=== PATIENT | male | born 1945 | race Caucasian/White ===

== ENCOUNTER 2018-02-23 15:00 | Outpatient (CLI) | payer MEDICARE, OTHER ==
[2018-02-23 18:30] LABS: PSA FREE 0.3 ng/mL (0.16-2.81)
[2018-02-23 18:31] LABS: PSA TOTAL 1.81 ng/mL (0.000-2.000)
== END 2018-02-23 15:01 | disposition home or self-care (01) ==
LOC: LAB.F 15:00
PROVIDERS: ATTEND Urology
DX: N40.1 Benign prostatic hyperplasia with lower urinary tract symptoms (principal); R35.0 Frequency of micturition
CPT/HCPCS: 36415; 84154

== ENCOUNTER 2018-10-26 15:26 | Outpatient (CLI) | payer MEDICARE, OTHER | END 2018-10-26 15:27 | disposition home or self-care (01) | LOC: LAB.F 15:26 | PROVIDERS: ATTEND Ophthalmology | DX: H33.8 Other retinal detachments (principal) ==

== ENCOUNTER 2018-10-31 11:40 | Outpatient (CLI) | payer MEDICARE, OTHER ==
[2018-10-31 17:58] LABS: PT - PROTHROMBIN TIME 11.3 secs (9.9-12.6)
[2018-10-31 17:59] LABS: BASOPHILS # (AUTO) 0.1 10^3/uL (0.0-0.1); BASOPHILS % (AUTO) 0.7 %; EOSINOPHILS # (AUTO) 0.3 10^3/uL (0.0-0.7); EOSINOPHILS % (AUTO) 5.1 %; HGB - HEMOGLOBIN 14.6 g/dL (14.0-18.0); LYMPHOCYTES # (AUTO) 1.2 10^3/uL (1.5-3.5); LYMPHOCYTES % (AUTO) 17.1 %; MEAN CORPUSCULAR HEMOGLOBIN 31.9 pg (27.0-31.0); MEAN CORPUSCULAR HGB CONC 33.9 g/dL (32.0-36.0); MEAN CORPUSCULAR VOLUME 94.1 fL (80.0-94.0); MEAN PLATELET VOLUME 7.7 fL (7.4-11.4); MONOCYTES # (AUTO) 0.4 10^3/uL (0.0-1.0); MONOCYTES % (AUTO) 6.3 %; NEUTROPHILS # (AUTO) 4.8 10^3/uL (1.5-6.6); NEUTROPHILS % (AUTO) 70.8 %; PLT - PLATELET COUNT 248 10^3/uL (130-450); RED BLOOD COUNT 4.57 10^6/uL (4.70-6.10); RED CELL DISTRIBUTION WIDTH 14.2 % (12.0-15.0); WHITE BLOOD COUNT 6.8 x10^3/uL (4.8-10.8)
== END 2018-10-31 11:41 | disposition home or self-care (01) ==
LOC: LAB.F 11:40
PROVIDERS: ATTEND Ophthalmology
DX: H33.8 Other retinal detachments (principal)
CPT/HCPCS: 36415; 85025; 85610

== ENCOUNTER 2018-11-29 15:02 | Outpatient (CLI) | payer MEDICARE, OTHER ==
--- NOTE | 2018-11-30 10:36 | MRI Report ---
Reason: TRANSIENT DIPLOPIA Procedure Date: 11/29/2018 Accession Number: [id number] / [id number] Procedure: MRI - Angio Brain W/O (MRA) CPT Code: FULL RESULT: EXAM MRA BRAIN EXAM DATE: 11/29/2018 03:51 PM. CLINICAL HISTORY: Sudden onset of transient diplopia. COMPARISON: None. TECHNIQUE: Multiplanar, multisequence MRA sequences of the brain were performed. Other: None. Post-processing: Multiplanar 3D MIP reconstructions. IV Contrast: None. 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 origin of the right ELECTRONICS SCALE TESTER. Prominent left posterior communicating artery. Small left ELECTRONICS SCALE TESTER P1 segment. Prominent left SINCERE A1 segment with reciprocally hypoplastic right SINCERE A1. No evidence for cerebral aneurysm or large vessel occlusion or focal flow-limiting stenosis. IMPRESSION: Unremarkable screening [place] MRA. No evidence for aneurysm. Incidental anatomic variants are present as noted. RADIA
== END 2018-11-29 15:03 | disposition home or self-care (01) ==
LOC: DI 15:02
PROVIDERS: ATTEND Psychiatry & Neurology Neurology
DX: H53.2 Diplopia (principal)
CPT/HCPCS: 70544

== ENCOUNTER 2020-02-12 15:04 | Emergency (ER) | payer MEDICARE, OTHER ==
[2020-02-12 15:49] LABS: BILIRUBIN,URINE NEGATIVE (NEGATIVE); GLUCOSE, URINE (UA) NEGATIVE (NEGATIVE); KETONES,URINE (UA) NEGATIVE (NEGATIVE); LEUKOCYTE ESTERASE, URINE NEGATIVE (NEGATIVE); NITRITE,URINE NEGATIVE (NEGATIVE); OCCULT BLOOD,URINE NEGATIVE (NEGATIVE); PH,URINE 6.5 PH (5.0-7.5); PROTEIN,URINE NEGATIVE (NEGATIVE); UROBILINOGEN,URINE 0.2 (NORMAL) E.U./dL (NORMAL)
[2020-02-12 15:50] LABS: CLARITY,URINE CLEAR (CLEAR)
--- NOTE | 2020-02-12 15:57 | ED Physician Documentation ---
PD HPI BACK PAIN - Stated complaint Stated Complaint: LOWER BACK PAIN - Chief complaint Chief Complaint: Back Pain - History obtained from History obtained from: Patient - History of Present Illness Location: Lower, Right Quality: Pain, Aching Associated symptoms: No: Fever, Weakness, Numbness, Incontinent of urine, Unable to urinate, Hematuria, Incontinent of stool Improves with: Rest, Meds Worsened by: No: Movement, Lifting, Twisting, Palpation Contributing factors: No: Lifting, Twisting, Trauma, Cancer, IVDA - Additional information Additional information: 74 yo M presents w/ right lower back pain for about a week. Pain localized to about 2 inches around his belt line. Denies acute onset, fall, trauma, lifting or other precipitating factors. Has been taking ibuprofen 400mg several times a day w/ some relief but does not resolve problem. Pt concerned because he occasionally feels as though his right leg will give way. He does not have lower ext paraesthesias, weakness, foot drop, or saddle anesthesia but periodically when walking the right leg feels it may give out. He has no dysuria, hematuria, urg/frequency, or other changes in bowel/bladder. No fever/chills, no weight loss. Pt states he remains very active, does various stretching, weight lifting several times a week though doesn't think he did anything to strain back, and participates in bike spin classes several times a week. He has no difficulty with these activities. Pt states he wanted to r/o a kidney stone or UTI which is why he presented to the ED. He does suspect this is arthritis however. Review of Systems Constitutional: reports: Reviewed and negative Cardiac: reports: Reviewed and negative Respiratory: reports: Reviewed and negative GI: reports: Reviewed and negative : reports: Reviewed and negative Skin: reports: Reviewed and negative Musculoskeletal: reports: Back pain Psychiatric: reports: Reviewed and negative PD PAST MEDICAL HISTORY - Past Medical History Cardiovascular: High cholesterol, Pulmonary embolism Respiratory: None Neuro: None Endocrine/Autoimmune: None GI: None : Benign prostate hypertrophy, Kidney stones HEENT: None Psych: None Musculoskeletal: Osteoarthritis Derm: None - Past Surgical History Past Surgical History: Yes Ortho: Hip replacement, Knee replacement, Shoulder arthroplasty - Present Medications Home Medications: Ambulatory Orders Medication Instructions Recorded Confirmed Acetaminophen [Tylenol] 650 mg PO DAILY PRN 02/15/14 03/03/14 Diclofenac Sodium [Voltaren] 1 applic TOP DAILY PRN 02/15/14 03/03/14 - Allergies Allergies/Adverse Reactions: Allergies Allergy/AdvReac Type Severity Reaction Status Date / Time No Known Drug Allergies Allergy Verified 02/12/20 15:18 - Social History Does the pt smoke?: No Smoking Status: Never smoker Does the pt drink ETOH?: Yes Does the pt have substance abuse?: No - Immunizations Immunizations are current?: Yes - POLST Patient has POLST: No PD ED PE NORMAL - Vitals Vital signs reviewed: Yes - General General: Alert and oriented X 3, No acute distress, Well developed/nourished - Cardiac Cardiac: RRR, No murmur, No gallop, No rub - Respiratory Respiratory: No respiratory distress, Clear bilaterally - Abdomen Abdomen: Normal bowel sounds, Non tender, Non distended - Back Back: No CVA TTP, Other (unable to reproduce backpain w/ palpation ) - Derm Derm: Normal color, Warm and dry, No rash - Extremities Extremities: No deformity, No tenderness to palpate, Normal ROM s pain, No edema, No calf tenderness / cord, Other (normal gait, 5/5 extremity strength. ) - Neuro Neuro: Alert and oriented X 3 Eye Opening: Spontaneous Motor: Obeys Commands Verbal: Oriented GCS Score: 15 Results - Vitals Vitals: Vital Signs - 24 hr 02/12/20 02/12/20 15:18 16:51 Temperature 36.5 C 36.8 C Heart Rate 64 58 L Respiratory 16 19 Rate Blood Pressure 100/80 120/59 L O2 Saturation 97 99 Oxygen O2 Source Room air - Labs Labs: Laboratory Tests 02/12/20 15:40 Urine Color YELLOW Urine Clarity CLEAR Urine pH 6.5 Ur Specific [place] 1.025 Urine Protein NEGATIVE Urine Glucose (UA) NEGATIVE Urine Ketones NEGATIVE Urine Occult Blood NEGATIVE Urine Nitrite NEGATIVE Urine Bilirubin NEGATIVE Urine Urobilinogen 0.2 (NORMAL) Ur Leukocyte Esterase NEGATIVE Ur Microscopic Review NOT INDICATED Urine Culture Comments NOT INDICATED PD MEDICAL DECISION MAKING - ED course Complexity details: reviewed results, re-evaluated patient, considered differential, d/w patient ED course: 74 yo M who presents with right lower back pain for about a week. Not currently having the pain however. Physical exam reassuring, no signs of cauda equina, low suspicion for infectious etiology, no weight loss, IVDU or other red flags. UA negative for infection and there is no blood to suggest a stone, and pattern of pain not c/w stone. Xray reveals degenerative changes that may be contributing to patients sx. Pt advised to continue activity as tolerated but recommended red ucing lifting and anything that may induce low back strain for 2-3 weeks. Continue motrin, may try tylenol, warm compress. IF sx persist, follow up with PCP and consider PT or referral to customer engagement specialist. Return precautions reviewed w/ pt. Departure - Departure Disposition: 01 Home, Self Care Clinical Impression: Back pain Qualifiers: Back pain location: low back pain Chronicity: acute Back pain laterality: right Sciatica presence: without sciatica Qualified Code(s): M54.5 - Low back pain Condition: Good Instructions: ED Low Back Pain Injury Comments: You presented with lower back pain and wanted to rule out a urinary infection or possible kidney stone. Your urine was negative for infection and there was no blood or other signs suggestive of a stone. We did obtain an xray of your lumbar spine which shows many degenerative changes that are likely contributing to your pain. I recommend that you continue supportive measures (stretching, avoid heaving lifting/twisting, you may try heating pad, ibuprofen, and tylenol). If you have no improvement, please follow up with your primary doctor in 1-2 weeks. If you have worsening symptoms such as numbness in the groin, lower leg paraesthesias or foot drop, or urinary symptoms, fever, weight loss or other new concerns, please return to to the ER. Discharge Date/Time: 02/12/20 17:04
--- NOTE | 2020-02-12 16:30 | XRAY Report ---
PROCEDURE: Lumbar Spine 2 View INDICATIONS: pain TECHNIQUE: 2 views of the lumbar spine were acquired. COMPARISON: None. FINDINGS: Bones: 5 [id number] vertebrae are present. There is a minimal left curvature of the lumbar spi ne. There is minimal just the cyst at L1-L2, L2-L3, L3-L4, and L4-L5. Multilevel disc space narrowing is demonstrated including severe narrowing at L3-L4 with apparent partial fusion. Severe narrowing a lso demonstrated at L1-L2 as well as moderate to severe narrowing at L4-L5. There is moderate facet a rthropathy in the lower lumbar spine. No vertebral body compression fractures. Soft tissues: Overlying bowel gas pattern is normal. No suspicious soft tissue calcifications. IMPRESSION: 1. Multilevel degenerative disc disease throughout the lumbar spine including severe narrowing at L3- L4 with apparent partial fusion which is not well evaluated on the current study. Further evaluation may be obtained with MRI or CT if clinically indicated. 2. Moderate facet arthropathy in the lower lumbar spine. 3. Multilevel minimal atelectasis throughout the lumbar spine as well as a minimal leftward curvature . Reviewed by: Fabricio Zeng MD on 02/12/2020 4:28 PM PDT Approved by: Fabricio Zeng MD on 02/12/2020 4:28 PM PDT Station ID: [id number]
[2020-02-12 16:52] VITALS: BP 120/59
== END 2020-02-12 17:04 | disposition home or self-care (01) ==
LOC: ED 15:04
DX: M51.36 Other intervertebral disc degeneration, lumbar region (principal); M48.061 Spinal stenosis, lumbar region without neurogenic claudication
CPT/HCPCS: 72100; 81001; 81003; 87086; 99284

== ENCOUNTER 2020-04-01 10:00 | Outpatient (CLI) | payer MEDICARE, OTHER ==
--- NOTE | 2020-04-01 11:56 | MRI Report ---
PROCEDURE: Lumbar Spine W/O INDICATIONS: LUMBAR DISC DISEASE WITH RADICULOPATHY TECHNIQUE: Noncontrast sagittal T1 spin echo and T2 fast echo, sagittal STIR, axial T1 and T2 fast spin echo thr ough the lumbar spine. In cases with scoliosis, additional coronal T2 fast spin echo may be performe d. COMPARISON: Correlation is made with prior lumbar plain films, 02/12/2020. FINDINGS: Image quality: Motion artifact is noted. Alignment and Curvature: There is minimal retrolisthesis at L2-L3, with mild retrolisthesis at L3-L4 and at L4-L5. Mild levoconvex scoliotic curvature is seen. Bone Marrow: Marrow is of normal overall signal. No acute vertebral body compression fractures. Spinal Cord: Conus medullaris terminates at the T12 level. Visualized cord demonstrates normal sign al and size. Paraspinous Soft Tissues: No paravertebral masses. T12-L1: The disc height is well-preserved. There is loss of disc signal seen. Mild disc bulge is see n, which is eccentric to the left. There is a central/left disc extrusion, as on series 701 image 35 and on series 301 image 6. Moderate facet hypertrophy is seen. There is mild right-sided and modera te left-sided neuroforaminal narrowing seen. Mild to moderate central canal narrowing is seen. L1-L2: Moderate to severe loss of disc height and disc signal can be seen. Bridging anterior osteo phytes are seen. Moderate disc bulge is seen, which is eccentric to the right. Moderate facet hypert rophy is seen. There is moderate left-sided and moderate to severe right-sided neuroforaminal narrow ing seen. There is a degree of compression seen upon the exiting right L1 nerve root. Moderate centr al canal narrowing is seen. L2-L3: Moderate to severe loss of disc height and disc signal can be seen. Moderate disc bulge is seen, which is eccentric to the left side. Mild facet hypertrophy is seen. There is mild to moderat e left-sided and moderate right-sided neuroforaminal narrowing seen. Mild to moderate central canal n arrowing is seen. L3-L4: There is severe loss of disc height seen. A degree of bony bridging is suspected. Bridging a nterior osteophytes can be seen. Mild to moderate facet hypertrophy is seen at this level. There is m oderate to severe bilateral neuroforaminal narrowing seen. Compression is seen upon the exiting nerve roots. At least moderate central canal narrowing is seen. L4-L5: Moderate to severe loss of disc height and disc signal can be seen. Bridging anterior osteop hytes are seen. Posteriorly directed endplate osteophytes are seen. Moderate disc bulge is seen at this level. Moderate to prominent facet hypertrophy is seen. Moderate to severe bilateral neurofora roderick narrowing can be seen. Compression is seen upon the exiting nerve roots. Mild central canal n arrowing is seen. L5-S1: The disc height is well-preserved. There is loss of disc signal seen. Mild to moderate disc bulge is seen. Mild to moderate facet hypertrophy is seen. Fluid is seen within the facet joints them selves. Moderate to severe bilateral neuroforaminal narrowing can be seen, right worse than left. Co mpression is seen upon the exiting nerve roots. Mild to moderate central canal narrowing is seen. IMPRESSION: Multiple levels of lumbar spine degenerative change are seen, which are overall most pro minent at L3-L4. Moderate to severe bilateral neuroforaminal narrowing can be seen at L3-L4, L4-L5, and L5-S1, with as sociated exiting nerve root compression. Reviewed by: Ryan Montano MD on 04/01/2020 10:55 AM [place] Approved by: Ryan Montano MD on 04/01/2020 10:55 AM [facility] Station ID: [id number]
== END 2020-04-01 10:01 | disposition home or self-care (01) ==
LOC: DI 10:00
PROVIDERS: ATTEND Internal Medicine
DX: M51.36 Other intervertebral disc degeneration, lumbar region (principal); M48.061 Spinal stenosis, lumbar region without neurogenic claudication; M47.816 Spondylosis without myelopathy or radiculopathy, lumbar region; M47.817 Spondylosis without myelopathy or radiculopathy, lumbosacral region; M51.37 Other intervertebral disc degeneration, lumbosacral region; M48.07 Spinal stenosis, lumbosacral region; M51.25 Other intervertebral disc displacement, thoracolumbar region; M47.815 Spondylosis without myelopathy or radiculopathy, thoracolumbar region
CPT/HCPCS: 72148

== ENCOUNTER 2022-12-01 15:31 | Outpatient (CLI) | payer MEDICARE, OTHER ==
--- NOTE | 2022-12-01 16:14 | XRAY Report ---
PROCEDURE: Chest 2 View X-Ray INDICATIONS: COVID+ INFECTION, PRODUCTIVE COUGH TECHNIQUE: 2 views of the chest were acquired. COMPARISON: None. FINDINGS: Surgical changes and devices: None. Lungs and pleura: No pleural effusions or pneumothorax. Lungs are clear. Mediastinum: Mediastinal contours appear normal. Heart size is normal. Bones and chest wall: Scattered degenerative changes. IMPRESSION: No acute radiographic abnormality. Reviewed by: Doni Gomez MD on 12/01/2022 4:13 PM PDT Approved by: Doni Gomez MD on 12/01/2022 4:13 PM PDT Station ID: [id number]
== END 2022-12-01 23:59 | disposition home or self-care (01) ==
LOC: DI.S 15:31
PROVIDERS: ATTEND Physician Assistant Medical
DX: U07.1 COVID-19 (principal); J06.9 Acute upper respiratory infection, unspecified

== ENCOUNTER 2023-01-31 16:04 | Emergency (ER) | payer MEDICARE, OTHER ==
[2023-01-31 17:31] LABS: B. PARAPERTUSSIS- RESP PCR PAN NOT DETECTED; B. PERTUSSIS- RESP PCR PANEL NOT DETECTED; C. PNEUMONIAE- RESP PCR PANEL NOT DETECTED; CORONAVIRUS 229E-RESP PCR NOT DETECTED; CORONAVIRUS HKU1-RESP PCR NOT DETECTED; CORONAVIRUS NL63-RESP PCR NOT DETECTED; CORONAVIRUS OC43-RESP PCR NOT DETECTED; HUMAN METAPNEUMOVIRUS NOT DETECTED; INFLUENZA A- RESP PCR PANEL NOT DETECTED; INFLUENZA B - RESP PCR PANEL NOT DETECTED; M. PNEUMONIAE- RESP PCR PANEL NOT DETECTED; PARAINFLUENZA VIRUS 1 NOT DETECTED; PARAINFLUENZA VIRUS 2 NOT DETECTED; PARAINFLUENZA VIRUS 3 NOT DETECTED; PARAINFLUENZA VIRUS 4 NOT DETECTED; RHINOVIRUS/ENTEROVIRUS NOT DETECTED; RSV- RESP PCR PANEL NOT DETECTED; SARS-CoV-2 -RESP PCR PANEL NOT DETECTED
--- NOTE | 2023-01-31 17:59 | ED Physician Documentation ---
PD HPI URI - Stated complaint Stated Complaint: FEVER,SOA,THROAT PX - Chief complaint Chief Complaint: Resp - History obtained from History obtained from: Patient - History of Present Illness Timing - onset: How many days ago (3) Timing duration: Days (3) Timing details: Gradual onset Associated symptoms: No: Chest pain, Dyspnea, NVD Recently seen: Not recently seen - Additional information Additional information: 77-year-old male with fever and cough. He states his eyes have felt dry as well. Negative COVID test at home. No dyspnea. No vomiting or diarrhea. Nothing makes it better or worse. Review of Systems Constitutional: reports: Fever Skin: denies: Rash Neurologic: denies: Seizure PD PAST MEDICAL HISTORY - Past Medical History Cardiovascular: High cholesterol, Pulmonary embolism Respiratory: None Neuro: None Endocrine/Autoimmune: None GI: None : Benign prostate hypertrophy, Kidney stones HEENT: None Psych: None Musculoskeletal: Osteoarthritis Derm: None - Past Surgical History Past Surgical History: Yes Ortho: Hip replacement, Knee replacement, Shoulder arthroplasty - Present Medications Home Medications: Ambulatory Orders Medication Instructions Recorded Confirmed Celecoxib [CeleBREX] 100 mg PO BID 01/31/23 01/31/23 Gabapentin [Neurontin] 100 mg PO 01/31/23 01/31/23 Rosuvastatin Calcium [Crestor] 10 mg PO 01/31/23 01/31/23 traZODone [Desyrel] 50 mg PO 01/31/23 01/31/23 - Allergies Allergies/Adverse Reactions: Allergies Allergy/AdvReac Type Severity Reaction Status Date / Time No Known Drug Allergies Allergy Verified 01/31/23 16:30 - Social History Does the pt smoke?: No Smoking Status: Never smoker Does the pt drink ETOH?: Yes Does the pt have substance abuse?: No - Immunizations Immunizations are current?: Yes - POLST Patient has POLST: No PD ED PE NORMAL - Vitals Vital signs reviewed: Yes - General General: Alert and oriented X 3, No acute distress - HEENT HEENT: PERRL, Ears normal, Moist mucous membranes, Pharynx benign - Neck Neck: Supple, no meningeal sign - Cardiac Cardiac: RRR, Strong equal pulses - Respiratory Respiratory: No respiratory distress, Clear bilaterally - Abdomen Abdomen: Soft, Non tender, Non distended - Derm Derm: Warm and dry - Extremities Extremities: No edema - Neuro Neuro: Alert and oriented X 3 - Psych Psych: Normal mood, Normal affect Results - Vitals Vitals: Vital Signs - 24 hr 01/31/23 01/31/23 16:26 18:01 Temperature 38.0 C H 38.4 C H Heart Rate 96 86 Respiratory 20 16 Rate Blood Pressure 165/69 H 155/72 H O2 Saturation 96 94 Oxygen O2 Source Room air - Labs Labs: Laboratory Tests 01/31/23 16:15 Nasal Adenovirus (PCR) DETECTED A Nasal B. parapertussis DNA (PCR) NOT DETECTED Nasal Coronavir 229E PCR NOT DETECTED Nasal Coronavir HKU1 PCR NOT DETECTED Nasal Coronavir NL63 PCR NOT DETECTED Nasal Coronavir OC43 PCR NOT DETECTED Nasal Enterovir/Rhinovir PCR NOT DETECTED Nasal Influenza B PCR NOT DETECTED Nasal Influenza A PCR NOT DETECTED Nasal Parainfluen 1 PCR NOT DETECTED Nasal Parainfluen 2 PCR NOT DETECTED Nasal Parainfluen 3 PCR NOT DETECTED Nasal Parainfluen 4 PCR NOT DETECTED Nasal RSV (PCR) NOT DETECTED Nasal B.pertussis DNA PCR NOT DETECTED Nasal C.pneumoniae (PCR) NOT DETECTED Charan Human Metapneumo PCR NOT DETECTED Nasal M.pneumoniae (PCR) NOT DETECTED Nasal SARS-CoV-2 (PCR) NOT DETECTED - Rads (name of study) cxr Relevant Findings:: Final report received, See rad report PD Medical Decision Making - ED course Complexity details: reviewed results, re-evaluated patient, considered differential, d/w patient ED course: Patient is well-appearing, nontoxic. He is positive for adenovirus. Chest x- ray does not show any evidence of pneumonia. Negative COVID test. No hypoxia or respiratory distress. We will continue supportive care at home and have him follow-up with his PCP for further care as needed. Patient counseled regarding signs and symptoms for which I believe and urgent re-evaluation would be necessary. Patient with good understanding of and agreement to plan and is comfortable going home at this time This document was made in part using voice recognition software. While efforts are made to proofread this document, sound alike and grammatical errors may occur. Departure - Departure Disposition: 01 Home, Self Care Clinical Impression: Adenovirus infection Condition: Good Instructions: ED Viral Syndrome Follow-Up: your,doctor in 1 week [Other] Comments: You have tested positive for adenovirus today. Your x-ray does not show any evidence of pneumonia. Please follow-up with your doctor for further care. Please return if you worsen. You can use Motrin or Tylenol as needed for pain. Your COVID test is negative. Forms: PCP List Discharge Date/Time: 01/31/23 18:09
--- OUTSIDE RECORDS SUMMARY | 2023-01-31 18:02 | EXTERNAL MEDICAL SUMMARY RPT | Continuity of Care Document ---
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 Name Role Phone Unavailable Unavailable Unavailable Gael Patient Registrar, Mike Unavailable U navailable Gael Patient Registrar, Mike Unavailable U navailable Gael Patient Registrar, Mike Unavailable U navailable Medications date description facility 2022-12-01 00:00 fluticasone propionate [facility] [place] 2022-12-01 00:00 fluticasone propionate All 2022-12-02 00:00 fluticasone propionate [facility] [place] 2022-12-01 00:00 aspirin [facility] [place] 2022-12-01 00:00 aspirin All 2022-12-02 00:00 aspirin [facility] [place] 2022-12-01 00:00 lorazepam [facility] [place] 2022-12-01 00:00 lorazepam All 2022-12-02 00:00 lorazepam [facility] [place] 2022-12-01 00:00 fluticasone propionate [facility] [place] 2022-12-01 00:00 fluticasone propionate All 2022-12-02 00:00 fluticasone propionate [facility] [place] 2022-12-01 00:00 lorazepam [facility] [place] 2022-12-01 00:00 lorazepam All 2022-12-02 00:00 lorazepam [facility] [place] 2022-12-01 00:00 fluticasone propionate [facility] [place] 2022-12-01 00:00 fluticasone propionate All 2022-12-02 00:00 fluticasone propionate [facility] [place] 2022-12-01 00:00 lorazepam [facility] [place] 2022-12-01 00:00 lorazepam All 2022-12-02 00:00 lorazepam [facility] [place] 2022-12-01 00:00 aspirin [facility] [place] 2022-12-01 00:00 aspirin All 2022-12-02 00:00 aspirin [facility] [place] 2022-12-01 00:00 celecoxib [facility] [place] 2022-12-01 00:00 celecoxib All 2022-12-01 00:00 celecoxib [facility] [place] 2022-12-02 00:00 celecoxib [facility] [place] 2022-12-01 00:00 trazodone [facility] [place] 2022-12-01 00:00 trazodone All 2022-12-02 00:00 trazodone [facility] [place] 2022-12-01 00:00 gabapentin [facility] [place] 2022-12-01 00:00 gabapentin All 2022-12-02 00:00 gabapentin [facility] [place] 2022-12-01 00:00 rosuvastatin [facility] [place] 2022-12-01 00:00 rosuvastatin All 2022-12-02 00:00 rosuvastatin [facility] [place] 2022-12-01 00:00 fluticasone propionate [facility] [place] 2022-12-01 00:00 fluticasone propionate All 2022-12-02 00:00 fluticasone propionate [facility] [place] 2022-12-01 00:00 gabapentin [facility] [place] 2022-12-01 00:00 gabapentin All 2022-12-02 00:00 gabapentin [facility] [place] 2022-12-01 00:00 trazodone [facility] [place] 2022-12-01 00:00 trazodone All 2022-12-02 00:00 trazodone [facility] [place] 2022-12-01 00:00 lorazepam [facility] [place] 2022-12-01 00:00 lorazepam All 2022-12-02 00:00 lorazepam [facility] [place] 2022-12-01 00:00 trazodone [facility] [place] 2022-12-01 00:00 trazodone All 2022-12-02 00:00 trazodone [facility] [place] 2022-12-01 00:00 celecoxib [facility] [place] 2022-12-01 00:00 celecoxib All 2022-12-01 00:00 celecoxib [facility] [place] 2022-12-02 00:00 celecoxib [facility] [place] 2022-12-01 00:00 celecoxib [facility] [place] 2022-12-01 00:00 celecoxib All 2022-12-01 00:00 celecoxib [facility] [place] 2022-12-02 00:00 celecoxib [facility] [place] 2022-12-01 00:00 gabapentin [facility] [place] 2022-12-01 00:00 gabapentin All 2022-12-02 00:00 gabapentin [facility] [place] 2022-12-01 00:00 aspirin [facility] [place] 2022-12-01 00:00 aspirin All 2022-12-02 00:00 aspirin [facility] [place] 2022-12-01 00:00 celecoxib [facility] [place] 2022-12-01 00:00 celecoxib All 2022-12-01 00:00 celecoxib [facility] [place] 2022-12-02 00:00 celecoxib [facility] [place] 2022-12-01 00:00 rosuvastatin [facility] [place] 2022-12-01 00:00 rosuvastatin All 2022-12-02 00:00 rosuvastatin [facility] [place] 2022-12-01 00:00 gabapentin [facility] [place] 2022-12-01 00:00 gabapentin All 2022-12-02 00:00 gabapentin [facility] [place] 2022-12-01 00:00 rosuvastatin [facility] [place] 2022-12-01 00:00 rosuvastatin All 2022-12-02 00:00 rosuvastatin [facility] [place] 2022-12-01 00:00 trazodone [facility] [place] 2022-12-01 00:00 trazodone All 2022-12-02 00:00 trazodone [facility] [place] 2022-12-01 00:00 rosuvastatin [facility] [place] 2022-12-01 00:00 rosuvastatin All 2022-12-02 00:00 rosuvastatin [facility] [place] Problems date description facility 2022-12-01 00:00 Infection of upper r espiratory tract caused by SARS-CoV-2 [facility] 2022-12-01 00:00 Infection of upper r espiratory tract caused by SARS-CoV-2 [facility] [place] 2022-12-01 00:00 No current problems or disability - unknown [facility] [place] 2022-12-01 00:00 Repeated prescription All 2022-12-01 00:00 Repeated prescription [facility] [place] 2022-12-01 00:00 Productive cough All 2022-12-01 00:00 Productive cough [facility] [place] 2022-12-01 00:00 Cough All 2022-12-01 00:00 Cough [facility] [place] 2022-12-01 00:00 Other specified cough All 2022-12-01 00:00 Other specified cough [facility] [place] 2022-12-01 00:00 COVID-19 All 2022-12-01 00:00 COVID-19 [facility] [place] 2022-12-01 00:00 Issue of repeat prescriptions A ll 2022-12-01 00:00 Issue of repeat prescriptions [facility] [place] 2022-12-01 00:00 Encounter for issue of repeat prescription All 2022-12-01 00:00 Encounter for issue of repeat prescription [facility] [place] Procedures date description facility 2022-12-01 00:00 Visit Code Hold [facility] 2022-12-01 00:00 Visit Code Hold [facility] [place] Social History date description facility 2022-12-01 00:00 Never smoker All 2022-12-01 00:00 Never smoker [facility] [place] 2022-12-01 00:00 Unknown if ever smoked [facility] [place] Vital Signs date measurement value units 2022-12-01 00:00 BMI 27.77 kg/m2 2022-12-01 00:00 BP_diastolic 71 mmHg 2022-12-01 00:00 BP_systolic 135 mmHg 2022-12-01 00:00 heart_rate 69 /min 2022-12-01 00:00 height_metric 172.72 cm 2022-12-01 00:00 height_standard 68 in 2022-12-01 00:00 respiration_rate 17 /min 2022-12-01 00:00 temperature_metric 36.22 C 2022-12-01 00:00 temperature_standard 97.2 F 2022-12-01 00:00 weight_metric 82.55 kg 2022-12-01 00:00 weight_standard 182 lb 2022-12-01 00:00 BMI 27.77 kg/m2 2022-12-01 00:00 BP_diastolic 71 mmHg 2022-12-01 00:00 BP_systolic 135 mmHg 2022-12-01 00:00 heart_rate 69 /min 2022-12-01 00:00 height_metric 172.72 cm 2022-12-01 00:00 height_standard 68 in 2022-12-01 00:00 respiration_rate 17 /min 2022-12-01 00:00 temperature_metric 36.22 C 2022-12-01 00:00 temperature_standard 97.2 F 2022-12-01 00:00 weight_metric 82.55 kg 2022-12-01 00:00 weight_standard 182 lb
[2023-01-31 18:07] VITALS: BP 155/72; O2SAT 94
--- NOTE | 2023-01-31 18:38 | XRAY Report ---
PROCEDURE: Chest 1 View X-Ray INDICATIONS: SOA TECHNIQUE: One view of the chest was acquired. COMPARISON: None FINDINGS: Surgical changes and devices: None. Lungs and pleura: No pleural effusions or pneumothorax. Lungs are clear. Mediastinum: Mediastinal contours appear normal. Heart size is normal. Bones and chest wall: No suspicious bony lesions. Overlying soft tissues appear unremarkable. IMPRESSION: No acute cardiopulmonary findings Reviewed by: Ifeanyi Serna MD on 01/31/2023 5:36 PM [facility] Approved by: Ifeanyi Serna MD on 01/31/2023 5:36 PM [facility] Station ID: [id number]
== END 2023-01-31 18:09 | disposition home or self-care (01) ==
LOC: ED 16:04
DX: B34.0 Adenovirus infection, unspecified (principal); Z20.822 Contact with and (suspected) exposure to COVID-19; E78.00 Pure hypercholesterolemia, unspecified; Z79.899 Other long term (current) drug therapy
CPT/HCPCS: 87633; 99283; 99284